=== PATIENT | female | born 1950 | race Native Hawaiian/Other Pacific Islander ===

== ENCOUNTER → 2020-10-29 | Outpatient (REF) | payer MEDICARE, OTHER ==
[2020-10-30 17:33] LABS: AMYLASE 65 U/L (25-115); LIPASE 142 U/L (73-393)
== END ==
LOC: M LAB REF 16:25
PROVIDERS: ATTEND Family Medicine
DX: R10.13 Epigastric pain (principal)

== ENCOUNTER → 2020-11-13 | Outpatient (CLI) | payer MEDICARE, OTHER ==
[~2020-11-13] MED LIST: E-Z-GAS II EFFERVESCENT PACKET (SODIUM BICARB./CITRIC ACID/SIMETHICONE) As Ordered ONE; E-Z-HD 98% w/w 340GM SUSP BTL As Ordered ONE; E-Z-PAQUE 96% w/w SUSP 176GM BTL As Ordered ONE
--- NOTE | 2020-11-13 16:10 | REP ---
INDICATION: EPIGASTRIC PAIN. COMPARISON: None TECHNIQUE: This procedure was performed by Sylvia Lewis [facility], under the direct supervision of Dr. Rubio. Images were reviewed with Dr. Rubio prior to dictation. Liquid barium and gas producing crystals were given in the erect position, as well as liquid barium in the prone oblique position in order to perform a double contrast upper GI examination. Additionally liquid barium was given at the end of the examination in order to perform a small-bowel follow-through. FINDINGS: The mail opener film shows no organomegaly or pathological masses. The intestinal gas pattern is unremarkable. The oral and pharyngeal stages of deglutition were unremarkable. Esophageal transport is prompt and efficient and there is no evidence of esophagitis, stricture, or mucosal ring. There is no evidence of a hiatal hernia. There was no gastroesophageal reflux noted . The stomach ricardo are normally outlined. The rugal folds are smooth and regular. There is no gastritis, neoplasm, or ulcerative disease. The duodenal ricardo are normally outlined. The mucosal folds are smooth and regular. There is no duodenitis, peptic ulcer disease or neoplasm. The visualized portion of the proximal small bowel appears normal in course and caliber. The barium column was followed through the small bowel to the level of the terminal ileum. Small bowel transit time is approximately 20 minutes. During fluoroscopy gentle palpation shows all loops are freely movable and pliable. There is no fixed angulated loops. The small bowel mucosal pattern is normal in course and caliber. There is no transition to suggest a partial small bowel obstruction. Spot filming of the terminal ileum shows it to be unremarkable. IMPRESSION: 1. Unremarkable upper GI examination. 2. Small bowel transit time of approximately 20 minutes. 0.6 minutes of fluoroscopy time was utilized for this procedure. Some fluoroscopic images are performed with last image hold technology. These images require no additional radiation. <Electronically signed by Sylvia Lewis > 11/13/20 1417 <Electronically signed by Ashutosh Rubio > 11/13/20 [id number]
== END ==
LOC: M RAD 08:01
PROVIDERS: ATTEND Family Medicine
DX: R10.13 Epigastric pain (principal)

== ENCOUNTER → 2021-05-06 | Outpatient (CLI) | payer MEDICARE, OTHER ==
--- NOTE | 2021-05-06 16:26 | REP ---
INDICATION: LT KNEE SPRAIN. COMPARISON: None. TECHNIQUE: Multiple sequences obtained in the axial, coronal and sagittal planes. FINDINGS: Menisci: There is fraying centrally of the posterior horn of the medial meniscus. Cruciate ligaments: Intact. Collateral ligaments: Edema surrounding the medial collateral ligament distally is consistent with a mild sprain. There is also edema surrounding the distal gracilis and semitendinosis tendons, which could potentially indicate strain of these tendons. Extensor mechanism/patellar retinacula: Intact. Cartilage: There is mild to moderate chondromalacia of the medial patellar facet with mild fissuring. There is mild to moderate diffuse chondromalacia of the medial femoral condyle and tibial plateau, with mild diffuse chondromalacia of the lateral femoral condyle and tibial plateau. Bone marrow: There is diffuse marrow edema in the tibial plateaus suggesting bone bruising. Multiple small subcortical cysts are also seen centrally in the tibial plateau. There is mild subchondral marrow edema in the medial patellar facet. Joint fluid: There is a moderate joint effusion. Popliteal region: No cyst. IMPRESSION: There is fraying centrally of the posterior horn of the medial meniscus. There are findings suggesting a sprain of the medial collateral ligament and possibly a strain of both the distal gracilis and semitendinosis tendons. Global chondromalacia as discussed above. There is mild fissuring of the cartilage of the medial patellar facet with mild subchondral marrow edema. Diffuse marrow edema in the tibial plateaus may indicate bone bruising. Moderate joint effusion. <Electronically signed by Ashutosh Rubio > 05/06/21 [id number]
== END ==
LOC: M PLAIMG 15:34
PROVIDERS: ATTEND Physician Assistant
DX: S83.412A Sprain of medial collateral ligament of left knee, initial encounter (principal); W18.30XA Fall on same level, unspecified, initial encounter; Y92.009 Unspecified place in unspecified non-institutional (private) residence as the place of occurrence of the external cause

== ENCOUNTER → 2022-06-25 | Outpatient (REF) | payer MEDICARE, OTHER | LOC: M LAB REF 13:58 | PROVIDERS: ATTEND Physician Assistant Medical | DX: H66.42 Suppurative otitis media, unspecified, left ear (principal) ==

== ENCOUNTER → 2022-09-17 | Outpatient (CLI) | payer MEDICARE | LOC: M WHC 12:29 | PROVIDERS: ATTEND Family Medicine | DX: Z12.31 Encounter for screening mammogram for malignant neoplasm of breast (principal); M81.0 Age-related osteoporosis without current pathological fracture ==

== ENCOUNTER 2023-01-07 12:27 | Day surgery (SDC) | payer MEDICARE ==
[~2023-01-07] VITALS: Ht 149.9 cm; Wt 47.2 kg
[~2023-01-07 12:27] MED LIST changes: -E-Z-GAS II EFFERVESCENT PACKET (SODIUM BICARB./CITRIC ACID/SIMETHICONE) As Ordered ONE; -E-Z-HD 98% w/w 340GM SUSP BTL As Ordered ONE; -E-Z-PAQUE 96% w/w SUSP 176GM BTL As Ordered ONE; +LOSA50TA28 PO; +NS 1,000 ML IV ONE; +OYST1TAB PO; +VITA-243 PO; +VITA100093 PO
[2023-01-07] MEDS ORDERED: propofoL 200 MG/20 ML VIAL As Ordered ONE ×2 (14:47→14:57)
[2023-01-07] MEDS ORDERED: LIDOCAINE 2% 100MG/5ML SDV (FOR ANES.) As Ordered ONE (14:47)
[2023-01-07 15:20] VITALS: BP 106/55
== END 2023-01-07 15:28 | disposition home or self-care (01) ==
LOC: M OPP 12:27
PROVIDERS: ATTEND Surgery
DX: Z80.0 Family history of malignant neoplasm of digestive organs (principal); K57.30 Diverticulosis of large intestine without perforation or abscess without bleeding; Z88.8 Allergy status to other drugs, medicaments and biological substances; Z79.899 Other long term (current) drug therapy

== ENCOUNTER → 2025-06-15 | Outpatient (CLI) | payer MEDICARE ==
[~2025-06-15] MED LIST changes: -NS 1,000 ML IV ONE
== END ==
LOC: M WHC 12:59
PROVIDERS: ATTEND Family Medicine
DX: Z12.31 Encounter for screening mammogram for malignant neoplasm of breast (principal)